=== PATIENT | male | born 1940 | race African-American/Black ===

== ENCOUNTER 2020-05-01 21:29 | Observation (INO) | payer MEDICARE ==
[2020-05-01 21:41] LABS: Glucose,Whole Blood 122 mg/dL (75-99)
--- NOTE | 2020-05-01 21:55 | ED ---
Syncope HPI - General Stated Complaint: Syncope Time Seen by Provider: 05/01/20 21:40 - History of Present Illness Initial Comments: Patient is 71-year-old male with past history of hypertension who presents to the emergency department with reported single episode. Patient was laying in bed. His called into the computer. He states he stood up, took 3 steps and ended up having a syncopal episode. He fell and hit his head. attempted to arouse the patient. She sat him up. Patient had his eyes open however he was unresponsive. The patient then fell again backwards and hit his head off the computer table where he sustained a laceration. She called EMS. Upon arrival the patient was alert and answering questions appropriately. No a ctive bleeding from the scalp laceration patient denies any headaches or visual changes. No neck pain. Patient denies any chest pain or shortness of breath prior to the incident. No history of similar in the past. Denies any numbness, tingling or weakness in his extremity. No speech difficult these. There is no seizure-like activity. Patient did not urinate or have a bowel movement. Patient did not bite his tongue. No other alleviating, precipitating or modifying factors - Related Data Home Medications Medication Instructions Recorded Confirmed LORazepam [Ativan] 1 mg PO BID PRN 11/29/14 05/01/20 Losartan Potassium [Cozaar] 100 mg PO HS 11/29/14 05/01/20 Latanoprost [Xalatan 0.005%] 1 drop LEFT EYE HS 05/01/20 05/01/20 Olopatadine HCl [Pataday] 1 drop LEFT EYE HS 05/01/20 05/01/20 Previous Rx's Medication Instructions Recorded Metoprolol Succinate (ER) [Toprol 25 mg PO DAILY #30 tab.er.24h 05/02/20 XL] Allergies Allergy/AdvReac Type Severity Reaction Status Date / Time No Known Allergies Allergy Verified 05/01/20 22:35 Review of Systems ROS Statement: Those systems with pertinent positive or pertinent negative responses have been documented in the HPI. ROS Other: All systems not noted in ROS Statement are negative. Past Medical History Past Medical History: Eye Disorder, GERD/Reflux, Hypertension Additional Past Medical History / Comment(s): diverticulitis, sarcoidosis,hiatal hernia, arthritis, glaucoma History of Any Multi-Drug Resistant Organisms: None Reported Past Surgical History: Joint Replacement Additional Past Surgical History / Comment(s): surgery on salivary gland, rt knee replacement Past Anesthesia/Blood Transfusion Reactions: No Reported Reaction Past Psychological History: Anxiety Past Alcohol Use History: Rare Past Drug Use History: None Reported - Past Family History Father Family Medical History: Pulmonary Embolus Mother Additional Family Medical History / Comment(s): Mother at age 51 from a lung disorder. Brother(s) Additional Family Medical History / Comment(s): Patient has 3 brothers in FOR myocardial infarction. Sister(s) Additional Family Medical History / Comment(s): Patient has 3 sisters and all have diabetes. Patient has 2 children with no major medical problems. General Exam General appearance: alert, in no apparent distress Head exam: Present: normocephalic, other (2.0 cm x 0.5 cm occipital laceration. No deep structure involvement. No retained foreign bodies. No underlying bony fracture. No active bleeding at this time) Eye exam: Present: normal appearance, PERRL, EOMI. Absent: scleral icterus, conjunctival injection, periorbital swelling ENT exam: Present: normal exam, mucous membranes moist Neck exam: Present: normal inspection. Absent: tenderness, meningismus, lymphadenopathy Respiratory exam: Present: normal lung sounds bilaterally. Absent: respiratory distress, wheezes, rales, rhonchi, stridor Cardiovascular Exam: Present: regular rate, normal rhythm, normal heart sounds. Absent: systolic murmur, diastolic murmur, rubs, gallop, clicks GI/Abdominal exam: Present: soft, normal bowel sounds. Absent: distended, tenderness, guarding, rebound, rigid Extremities exam: Present: normal inspection, full ROM, normal capillary refill. Absent: tenderness, pedal edema, joint swelling, calf tenderness Back exam: Present: normal inspection Neurological exam: Present: alert, oriented X3, CN II-XII intact Psychiatric exam: Present: normal affect, normal mood Skin exam: Present: warm, dry, intact, normal color. Absent: rash Course Vital Signs 05/01/20 05/01/20 05/01/20 21:41 22:24 22:45 Temperature 97.4 F L 97.9 F Pulse Rate 57 L 60 Pulse Rate [ 54 L Sitting] Pulse Rate [ 62 Standing] Pulse Rate [ 55 L Supine] Respiratory 14 16 Rate Blood Pressure 116/71 124/67 Blood Pressure 124/67 [Left Arm Sitting] Blood Pressure 117/65 [Left Arm Standing] Blood Pressure 122/69 [Left Arm Supine] O2 Sat by Pulse 98 96 Oximetry 05/02/20 05/02/20 00:08 00:44 Temperature 97.9 F 97.8 F Pulse Rate 63 Pulse Rate [ Sitting] Pulse Rate [ Standing] Pulse Rate [ 68 Supine] Respiratory 20 18 Rate Blood Pressure 124/67 Blood Pressure [Left Arm Sitting] Blood Pressure [Left Arm Standing] Blood Pressure 118/64 [Left Arm Supine] O2 Sat by Pulse 97 98 Oximetry EKG Findings - EKG Comments: EKG Findings:: EKG demonstrates inspiratory cartilage. 57. TN 168. QRS 82. QTC 439. No acute ST segment elevations. No evidence of high degree block. Procedures - Laceration Laceration #1 Consent Obtained: verbal consent Indication: laceration Site: scalp Size (cm): 2 Description: linear Depth: simple, single layer Pre-repair: wound explored, irrigated extensively, deep structures intact Number of Sutures: 2 (aime) Patient Tolerated Procedure: well, no complications Medical Decision Making - Medical Decision Making Upon arrival patient placed into room 8. A thorough history and physical exam was performed. Patient hooked up to continuous pulse ox and cardiac monitoring. 12-lead EKG performed. Peripheral IV was established. Laboratory studies were conducted. Orthostatics are performed and are negative. Patient sent for a chest x-ray. Also has a CT of his brain several spine performed. Laboratory studies are unremarkable. Chest x-ray demonstrates interstitial pulmonary fibrotic changes which are not different from previous chest CT. CT of the patient's cervical spine and head demonstrates cerebral atrophy and mild chronic small vessel ischemia. No acute intracranial malady. Spondylitic changes in the lower cervical spine. I did staple the patient's scalp laceration using 2 aime. Patient is reevaluated and feels improved at this time. I did recommend hospital admission for syncopal episode for patient did agree. Discussed case with Dr. Loving who accepted admission. I will order an echo and carotid Dopplers. Patient remained in stable condition awaiting a bed on the floor - Lab Data Result diagrams: 05/02/20 03:29 05/02/20 03:29 Lab Results 05/01/20 05/01/20 05/01/20 Range/Units 21:39 21:47 21:47 WBC 4.7 (3.8-10.6) k/uL RBC 3.98 L (4.30-5.90) m/uL Hgb 12.5 L (13.0-17.5) gm/dL Hct 36.9 L (39.0-53.0) % MCV 92.7 (80.0-100.0) fL MCH 31.3 (25.0-35.0) pg MCHC 33.8 (31.0-37.0) g/dL RDW 13.4 (11.5-15.5) % Plt Count 174 (150-450) k/uL Neutrophils % 69 % Lymphocytes % 17 % Monocytes % 9 % Eosinophils % 2 % Basophils % 1 % Neutrophils # 3.3 (1.3-7.7) k/uL Lymphocytes # 0.8 L (1.0-4.8) k/uL Monocytes # 0.4 (0-1.0) k/uL Eosinophils # 0.1 (0-0.7) k/uL Basophils # 0.0 (0-0.2) k/uL PT 10.6 (9.0-12.0) sec INR 1.0 (<1.2) APTT 22.0 (22.0-30.0) sec Sodium (137-145) mmol/L Potassium (3.5-5.1) mmol/L Chloride (98-107) mmol/L Carbon Dioxide (22-30) mmol/L Anion Gap mmol/L BUN (9-20) mg/dL Creatinine (0.66-1.25) mg/dL Est GFR (CKD-EPI)AfAm (>60 ml/min/1.73 sqM) Est GFR (CKD-EPI)NonAf (>60 ml/min/1.73 sqM) Glucose (74-99) mg/dL POC Glucose (mg/dL) 122 H (75-99) mg/dL POC Glu Valve Setter ID Kris, Saadia Calcium (8.4-10.2) mg/dL Total Bilirubin (0.2-1.3) mg/dL AST (17-59) U/L ALT (4-49) U/L Alkaline Phosphatase (38-126) U/L Troponin I (0.000-0.034) ng/mL Total Protein (6.3-8.2) g/dL Albumin (3.5-5.0) g/dL 05/01/20 05/01/20 Range/Units 21:47 21:47 WBC (3.8-10.6) k/uL RBC (4.30-5.90) m/uL Hgb (13.0-17.5) gm/dL Hct (39.0-53.0) % MCV (80.0-100.0) fL MCH (25.0-35.0) pg MCHC (31.0-37.0) g/dL RDW (11.5-15.5) % Plt Count (150-450) k/uL Neutrophils % % Lymphocytes % % Monocytes % % Eosinophils % % Basophils % % Neutrophils # (1.3-7.7) k/uL Lymphocytes # (1.0-4.8) k/uL Monocytes # (0-1.0) k/uL Eosinophils # (0-0.7) k/uL Basophils # (0-0.2) k/uL PT (9.0-12.0) sec INR (<1.2) APTT (22.0-30.0) sec Sodium 136 L (137-145) mmol/L Potassium 4.1 (3.5-5.1) mmol/L Chloride 108 H (98-107) mmol/L Carbon Dioxide 20 L (22-30) mmol/L Anion Gap 8 mmol/L BUN 23 H (9-20) mg/dL Creatinine 1.05 (0.66-1.25) mg/dL Est GFR (CKD-EPI)AfAm 79 (>60 ml/min/1.73 sqM) Est GFR (CKD-EPI)NonAf 68 (>60 ml/min/1.73 sqM) Glucose 118 H (74-99) mg/dL POC Glucose (mg/dL) (75-99) mg/dL POC Glu Valve Setter ID Calcium 8.7 (8.4-10.2) mg/dL Total Bilirubin 0.4 (0.2-1.3) mg/dL AST 22 (17-59) U/L ALT 11 (4-49) U/L Alkaline Phosphatase 76 (38-126) U/L Troponin I <0.012 (0.000-0.034) ng/mL Total Protein 6.1 L (6.3-8.2) g/dL Albumin 3.6 (3.5-5.0) g/dL Disposition Clinical Impression: Syncope, Blunt head trauma, Scalp laceration Disposition: ADMITTED IP TO THIS [facility] Condition: Stable Is patient prescribed a controlled substance at d/c from ED?: No Decision to Admit Reason: Admit from EC Decision Date: 05/01/20 Decision Time: 23:30
--- NOTE | 2020-05-01 22:15 | CT ---
EXAMINATION TYPE: CT brain trinh ozuna con DATE OF EXAM: 05/01/2020 COMPARISON: None HISTORY: fall, syncopal episode, posterior head injury Neck pain CT DLP: 1361.9 mGycm Automated exposure control for dose reduction was used. There is cerebral cortical atrophy. There is no mass effect nor midline shift. There is no sign of in tracranial hemorrhage. The calvarium is intact. There is normal aeration of the temporal bones. Cervical vertebra have normal alignment. There is disc space narrowing at C5-6 and C6-7 with spurring of the endplates. Posterior elements are intact. Facet joints are intact. The skull base is intact. There is some pleural and palmar scarring at the lung apices. There is mild hypodensity in the periventricular white matter. IMPRESSION: Cerebral atrophy and mild chronic small vessel ischemia. No acute intracranial abnormality. Spondylotic changes in the lower cervical spine. No fracture seen.
--- NOTE | 2020-05-01 22:16 | XR ---
EXAMINATION TYPE: XR chest 2V DATE OF EXAM: 05/01/2020 COMPARISON: None HISTORY: Syncope TECHNIQUE: FINDINGS: There is some coarse reticular interstitial infiltrate in the left mid and lower lung field . There is minimal interstitial infiltrate also right upper lobe. There is no heart failure. There ar e no hilar masses. Heart size is normal. Mediastinum is normal. There is no pleural effusion. Bony th orax is intact. IMPRESSION: Interstitial pulmonary fibrotic changes probably not significantly different than the [facility] CT scan of 12/01/2008. No heart failure.
[2020-05-01 22:17] LABS: Albumin 3.6 g/dL (3.5-5.0); Calcium 8.7 mg/dL (8.4-10.2); Potassium 4.1 mmol/L (3.5-5.1); Total Bilirubin 0.4 mg/dL (0.2-1.3); Total Protein 6.1 g/dL (6.3-8.2)
[2020-05-01 22:22] LABS: Prothrombin Time 10.6 sec (9.0-12.0)
[2020-05-01 22:43] LABS: Basophils % (A) 1 %; Eosinophils # (A) 0.1 k/uL (0-0.7); Eosinophils % (A) 2 %; HCT 36.9 % (39.0-53.0); HGB 12.5 gm/dL (13.0-17.5); Lymphocytes # (A) 0.8 k/uL (1.0-4.8); Lymphocytes % (A) 17 %; MCH 31.3 pg (25.0-35.0); MCHC 33.8 g/dL (31.0-37.0); MCV 92.7 fL (80.0-100.0); Mean Platelet Volume 7.7; Monocytes # (A) 0.4 k/uL (0-1.0); Monocytes % (A) 9 %; Neutrophils # (A) 3.3 k/uL (1.3-7.7); Neutrophils % (A) 69 %; Platelet Count 174 k/uL (150-450); RBC 3.98 m/uL (4.30-5.90); RDW 13.4 % (11.5-15.5); WBC 4.7 k/uL (3.8-10.6)
[2020-05-01] MEDS ORDERED: NALOXONE 0.4 MG/ML 1 ML VIAL IV PRN (23:30)
[2020-05-01] MEDS ORDERED: LORazepam 1 MG TAB PO PRN (23:37)
[2020-05-02] MEDS ORDERED: KETOTIFEN 0.025% OPHTH DROPS 5 ML BTL LEFT EYE SCH
[2020-05-02] MEDS ORDERED: LATANOPROST 0.005% OPHTH DROPS 2.5 ML BTL LEFT EYE SCH
--- NOTE | 2020-05-02 03:19 | US ---
EXAMINATION TYPE: US carotid duplex BILAT DATE OF EXAM: 05/02/2020 COMPARISON: CT CLINICAL HISTORY: syncope. Syncope. HTN. EXAM MEASUREMENTS: RIGHT: Peak Systolic Velocity (PSV) cm/sec ----- Right CCA: 80.6 ----- Right ICA: 83.9 ----- Right ECA: 174.0 ICA/CCA ratio: 1.0 RIGHT: End Diastole cm/sec ----- Right CCA: 8.2 ----- Right ICA: 20.1 ----- Right ECA: 0.0 LEFT: Peak Systolic Velocity (PSV) cm/sec ----- Left CCA: 113.6 ----- Left ICA: 123.2 ----- Left ECA: 101.3 ICA/CCA ratio: 1.1 LEFT: End Diastole cm/sec ----- Left CCA: 15.0 ----- Left ICA: 11.8 ----- Left ECA: 0.0 VERTEBRALS (direction of flow): Right Vertebral: Antegrade Left Vertebral: Antegrade Rhythm: Normal Increased velocities obtained right prox CCA, right mid CCA, right ECA, left prox CCA, and left mid C CA. Intimal thickening seen bilaterally. Minimal hyperechoic plaque seen bilateral carotid bifurcatio ns. Hypoechoic area with hyperechoic center seen right neck measurin.9 x 0.6 x 0.5 cm. IMPRESSION: There is antegrade flow in the vertebral arteries. The images and measurements suggest 50% stenosis i n the right internal carotid artery and 35% stenosis in the left internal carotid artery. There is 50 % stenosis right common carotid artery. Criteria for Assigning % of Stenosis / Diameter reduction (Estimation based on the indirect measurements of the internal carotid artery velocities (ICA PSV). 1. Normal (no stenosis)=ICA PSV < 125 cm/s: ratio < 2.0: ICA EDV<40 cm/s. 2. Less than 50% stenosis=ICA PSV < 125 cm/s: ratio < 2.0: ICA EDV<40 cm/s. 3. 50 to 69% stenosis=ICA PSV of 125 to 230 cm/s: ration 2.0 ? 4.0: ICA EDV 40-100 cm/s. 4. Greater than 70% stenosis to near occlusion= ICA PSV > 230 cm/s: ratio > 4.0: ICA EDV > 100 cm/s. 5. Near occlusion= ICA PSV velocities may be low or undetectable: variable ratio and ICA EDV. 6. Total occlusion=unable to detect flow.
[2020-05-02 04:26] LABS: Basophils % (A) 0 %; Eosinophils % (A) 1 %; HCT 38.5 % (39.0-53.0); HGB 12.8 gm/dL (13.0-17.5); Lymphocytes # (A) 0.5 k/uL (1.0-4.8); Lymphocytes % (A) 9 %; MCH 31.5 pg (25.0-35.0); MCHC 33.2 g/dL (31.0-37.0); MCV 94.6 fL (80.0-100.0); Mean Platelet Volume 7.7; Monocytes # (A) 0.5 k/uL (0-1.0); Monocytes % (A) 8 %; Neutrophils # (A) 4.9 k/uL (1.3-7.7); Neutrophils % (A) 81 %; Platelet Count 175 k/uL (150-450); RBC 4.07 m/uL (4.30-5.90); RDW 13.4 % (11.5-15.5)
[2020-05-02 04:28] LABS: Calcium 8.8 mg/dL (8.4-10.2); Potassium 4.5 mmol/L (3.5-5.1)
[2020-05-02 08:49] LABS: Cholesterol 144 mg/dL (<200); HDL Cholesterol 48 mg/dL (40-60); LDL Cholesterol,Calculated 88 mg/dL (0-99); Triglycerides 42 mg/dL (<150)
[2020-05-02 08:57] VITALS: BP 149/72; PULSE 60; RESP 18; TEMP 98
[2020-05-02] MEDS ORDERED: METOPROLOL SUCCINATE (ER) 100 MG TAB.ER.24H PO SCH (09:00)
[2020-05-02] MEDS ORDERED: METOPROLOL SUCCINATE (ER) 25 MG TAB.ER.24H PO SCH (09:30)
--- NOTE | 2020-05-02 10:00 | ECHOF ---
Referral Reason:syncope MEASUREMENTS -------- HEIGHT: 182.9 cm WEIGHT: 87.1 kg BP: 118/64 RVIDd: 3.5 cm (< 3.3) IVSd: 1.2 cm (0.6 - 1.1) LVIDd: 4.1 cm (3.9 - 5.3) LVPWd: 1.0 cm (0.6 - 1.1) IVSs: 1.3 cm LVIDs: 3.3 cm LVPWs: 1.4 cm LA Diam: 3.0 cm (2.7 - 3.8) LAESV Index (A-L): 26.85 ml/m Ao Diam: 3.3 cm (2.0 - 3.7) AV Cusp: 2.1 cm (1.5 - 2.6) MV EXCURSION: 13.536 mm (> 18.000) MV EF SLOPE: 69 mm/s (70 - 150) EPSS: 0.6 cm MV E Carlos: 0.75 m/s MV DecT: 220 ms MV A Carlos: 0.85 m/s MV E/A Ratio: 0.89 RAP: 5.00 mmHg RVSP: 41.43 mmHg FINDINGS -------- Sinus rhythm. This was a technically good study. The left ventricular size is normal. There is borderline concentric left ventricular hypertrophy. Overall left ventricular systolic function is normal with, an EF between 55 - 60 %. The right ventricle is normal in size. The left atrial size is normal. Normal LA size by volume 22+/-6 ml/m2. The right atrial size is normal. The aortic valve is trileaflet, and appears structurally normal. No aortic stenosis or regurgitation. Mild mitral regurgitation is present. Mild tricuspid regurgitation present. There is mild pulmonary hypertension. The right ventricular systolic pressure, as measured by Doppler, is 41.43mmHg. The pulmonic valve is normal. The aortic root size is normal. There is no pericardial effusion. CONCLUSIONS -------- 1. Sinus rhythm. 2. This was a technically good study. 3. The left ventricular size is normal. 4. There is borderline concentric left ventricular hypertrophy. 5. Overall left ventricular systolic function is normal with, an EF between 55 - 60 %. 6. The right ventricle is normal in size. 7. The left atrial size is normal. 8. Normal LA size by volume 22+/-6 ml/m2. 9. The right atrial size is normal. 10. Mild mitral regurgitation is present. 11. Mild tricuspid regurgitation present. 12. There is mild pulmonary hypertension. 13. The right ventricular systolic pressure, as measured by Doppler, is 41.43mmHg. HOME PARAPROFESSIONAL: Meagan Rdz RDCS
--- NOTE | 2020-05-02 10:40 | P.CRDCN ---
History of Present Illness History of present illness: HISTORY OF PRESENTING ILLNESS This is a pleasant 79-year-old male past medical history significant for hypertension, anxiety, sarcoidosis and glaucoma. He denies prior history of coronary artery disease and is not follow in the office with a report checker. We have been asked to see in consultation for syncope. He had been working outside in the yard all day. Came in around 1900 last night. He had an episode of what he describes as fireworks in his eyes. He took an ativan to calm himself down and laid down. His wanted to show him something on the computer so he got up and walked towards her. Before he made it to her he passed out. According to his it was for around 3 minutes. There was no convulsions or seizure like activity. He denies having chest pain, shortness of breath, nausea, vomiting, diaphoresis or palpitations. Vital signs negative for ortho static changes. DIAGNOSTICS EKG reveals sinus bradycardia heart rate of 57. Telemetry tracings reveal predominantly sinus mechanism with APCs. Chest xray pulmonary fibrotic changes with no heart failure noted. Laboratory reviewed, WBC 6, hemoglobin 12.8, platelets 175, d-dimer 0.48, sodium 135, potassium 4.5, creatinine 1.12, cardiac enzymes negative 3, LDL 88 and HDL 48. Current cardiac medications include Toprol 100 mg daily and losartan 100 mg at bedtime. REVIEW OF SYSTEMS At the time of my exam: CONSTITUTIONAL: Denies fever or chills. CARDIOVASCULAR: Denies chest pain, shortness of breath, orthopnea, PND or palpitations. RESPIRATORY: Denies cough. GASTROINTESTINAL: Denies abdominal pain, diarrhea, constipation, nausea or vomiting. MUSCULOSKELETAL: Denies myalgias. NEUROLOGIC: Denies numbness, tingling or weakness. ENDOCRINE: Denies fatigue, weight change, polydipsia or polyurina. GENITOURINARY: Denies burning, hematuria or urgency with micturation. HEMATOLOGIC: Denies history of anemia or bleeding. PHYSICAL EXAMINATION Blood pressure 149/72 heart rate 60 afebrile and maintaining oxygen saturation on room air. CONSTITUTIONAL: No apparent distress. HEENT: Head is normocephalic. Pupils are equal, round. Noted arcus senilis. Sclerae anicteric. Mucous membranes of the mouth are moist. No JVD. No carotid bruit. CHEST EXAMINATION: Lungs are clear to auscultation. No chest wall tenderness is noted on palpation or with deep breathing. HEART EXAMINATION: Regular rate and rhythm. S1, S2 heard. No murmurs, gallops or rub. ABDOMEN: Soft, nontender. Positive bowel sounds. EXTREMITIES: 2+ peripheral pulses, no lower extremity edema and no calf tenderness. NEUROLOGIC EXAMINATION: Patient is awake, alert and oriented x3. ASSESSMENT Syncope Hypertension History of sarcoidosis PLAN An acute coronary event has been ruled out. D-dimer unremarkable. Obtain 2-D echocardiogram and Doppler study to assess cardiac structure and function. Proceed with stress echocardiogram to assess for stress-induced cardiac ischemia. If stress test is normal recommend outpatient event monitoring. Follow-up in the office with Dr. Jennings. Thank you kindly for this consultation. Nurse Practitioner note has been reviewed, I agree with a documented findings and plan of care. Patient was seen and examined. Past Medical History Past Medical History: Eye Disorder, GERD/Reflux, Hypertension, Syncope Additional Past Medical History / Comment(s): diverticulitis, sarcoidosis,hiatal hernia, arthritis, glaucoma History of Any Multi-Drug Resistant Organisms: None Reported Past Surgical History: Joint Replacement Additional Past Surgical History / Comment(s): surgery on salivary gland, rt knee replacement Past Anesthesia/Blood Transfusion Reactions: No Reported Reaction Past Psychological History: Anxiety Smoking Status: Never smoker Past Alcohol Use History: Rare Past Drug Use History: None Reported - Past Family History Father Family Medical History: Pulmonary Embolus Medications and Allergies Home Medications Medication Instructions Recorded Confirmed Type LORazepam [Ativan] 1 mg PO BID PRN 11/29/14 05/01/20 History Losartan Potassium [Cozaar] 100 mg PO HS 11/29/14 05/01/20 History Metoprolol Succinate [Toprol XL] 100 mg PO DAILY 11/29/14 05/01/20 History Latanoprost [Xalatan 0.005%] 1 drop LEFT EYE HS 05/01/20 05/01/20 History Olopatadine HCl [Pataday] 1 drop LEFT EYE HS 05/01/20 05/01/20 History Allergies Allergy/AdvReac Type Severity Reaction Status Date / Time No Known Allergies Allergy Verified 05/01/20 22:35 Physical Exam Vitals: Vital Signs Temp Pulse Pulse Pulse Pulse Resp BP 05/02/20 01:45 97.8 F 68 16 05/02/20 00:44 97.8 F 68 18 05/02/20 00:08 97.9 F 63 20 124/67 05/01/20 22:45 97.9 F 60 16 124/67 05/01/20 22:24 54 L 62 55 L 05/01/20 21:41 97.4 F L 57 L 14 116/71 BP BP BP Pulse Ox 05/02/20 01:45 118/64 98 05/02/20 00:44 118/64 98 05/02/20 00:08 97 05/01/20 22:45 96 05/01/20 22:24 124/67 117/65 122/69 05/01/20 21:41 98 Intake and Output 05/01/20 05/02/20 05/02/20 22:59 06:59 14:59 Intake Total 450 Balance 450 Intake: Oral 450 Other: Voiding Method Toilet # Voids 0 Weight 87.09 kg 87.09 kg Results 05/02/20 03:29 05/02/20 03:29 Cardiac Enzymes 05/01/20 05/01/20 05/02/20 Range/Units 21:47 21:47 01:04 AST 22 (17-59) U/L Troponin I <0.012 <0.012 (0.000-0.034) ng/mL 05/02/20 Range/Units 03:29 AST (17-59) U/L Troponin I <0.012 (0.000-0.034) ng/mL Coagulation 05/01/20 Range/Units 21:47 PT 10.6 (9.0-12.0) sec APTT 22.0 (22.0-30.0) sec CBC 05/01/20 05/02/20 Range/Units 21:47 03:29 WBC 4.7 6.0 (3.8-10.6) k/uL RBC 3.98 L 4.07 L (4.30-5.90) m/uL Hgb 12.5 L 12.8 L (13.0-17.5) gm/dL Hct 36.9 L 38.5 L (39.0-53.0) % Plt Count 174 175 (150-450) k/uL Comprehensive Metabolic Panel 05/01/20 05/02/20 Range/Units 21:47 03:29 Sodium 136 L 135 L (137-145) mmol/L Potassium 4.1 4.5 (3.5-5.1) mmol/L Chloride 108 H 106 (98-107) mmol/L Carbon Dioxide 20 L 22 (22-30) mmol/L BUN 23 H 24 H (9-20) mg/dL Creatinine 1.05 1.12 (0.66-1.25) mg/dL Glucose 118 H 141 H (74-99) mg/dL Calcium 8.7 8.8 (8.4-10.2) mg/dL AST 22 (17-59) U/L ALT 11 (4-49) U/L Alkaline Phosphatase 76 (38-126) U/L Total Protein 6.1 L (6.3-8.2) g/dL Albumin 3.6 (3.5-5.0) g/dL Current Medications Generic Name Dose Route Start Last Admin Trade Name Freq PRN Reason Stop Dose Admin Ketotifen Fumarate 1 drops 05/02/20 00:00 05/02/20 00:52 Zaditor LEFT EYE Not Given HS MIQUEL Latanoprost 1 drops 05/02/20 00:00 05/02/20 00:52 Xalatan 0.005% LEFT EYE Not Given HS MIQUEL Lorazepam 1 mg 05/01/20 23:37 Ativan PO BID PRN Anxiety Losartan Potassium 100 mg 05/02/20 21:00 Cozaar PO HS MIQUEL Metoprolol Succinate 100 mg 05/02/20 09:00 Toprol Xl PO DAILY MIQUEL Naloxone HCl 0.2 mg 05/01/20 23:30 Narcan IV Q2M PRN Opioid Reversal Intake and Output 05/01/20 05/02/20 05/02/20 22:59 06:59 14:59 Intake Total 450 Balance 450 Intake: Oral 450 Other: Voiding Method Toilet # Voids 0 Weight 87.09 kg 87.09 kg 05/02/20 03:29 05/02/20 03:29
--- NOTE | 2020-05-02 13:42 | P.HPIM ---
History of Present Illness H&P Date: 05/02/20 HISTORY AND PHYSICAL AND DISCHARGE SUMMARY: History of Present Illness This is a 79-year-old -[place] male patient of Dr. Loving with past medical history of hypertension, gastroesophageal reflux disease, glaucoma, benign prostatic hypertrophy, borderline diabetes, gastroesophageal reflux disease status post Joce fundoplication and erectile dysfunction. Patient states he was working in the yard all day yesterday and then went into the house and took a shower. He took his medication and then his wanted him to see something on the computer. The patient does admit that he took a Viagra and then approximately one hour later felt dizzy and had a loss of consciousness maybe for 2-3 minutes. His did not report any seizure type activity. Patient relates that EMS found his blood pressure was on the low side. Regarding his medications, patient was recently decreased to metoprolol 50 due to bradycardia and patient feeling tired. This change was adjusted about 3 weeks ago. Patient came into [facility] emergency [facility] for evaluation. EKG reveals sinus bradycardia heart rate of 57. Chest xray pulmonary fibrotic changes with no heart failure noted. CAT scan of the brain and cervical spine revealed cerebral atrophy and mild chronic small vessel ischemia. No acute intracranial abnormality. Spondylotic changes in the lower cervical spine. No fracture seen. WBC 6, hemoglobin 12.8, platelets 175, d-dimer 0.48, sodium 135, potassium 4.5, creatinine 1.12, cardiac enzymes negative 3, LDL 88 and HDL 48. Patient was placed on the cardiac observation unit and consult with cardiology obtained. Echocardiogram revealed EF of 55-60%, mild mitral regurgitation, mild tricuspid regurgitation, mild pulmonary hypertension. Carotid ultrasound revealed 50% stenosis in the right internal carotid artery and 35% stenosis in the left internal carotid artery. Stress test was negative and patient was cleared for discharge home today. Event monitor has been arranged by cardiology. Patient will be discharged home today in stable condition. Toprol-XL decreased from 50 mg daily to 25 mg daily. Review of Systems Constitutional: No fever, no chills, no night sweats. No weight change. No weakness, fatigue or lethargy. No daytime sleepiness. EENT: No headache. No blurred vision or double vision, no loss of vision. No loss of Hearing, no ringing in the ears, no dizziness. No nasal drainage or congestion. No epistaxis. No sore throat. Lungs: No shortness of breath, cough, no sputum production. No wheezing. Cardiovascular: No chest pain, no lower extremity edema. No palpitations. No paroxysmal nocturnal dyspnea. No orthopnea. No lightheadedness or dizziness. Reports syncopal episodes. Abdominal: No abdominal pain. No nausea, vomiting. No diarrhea. No constipation. No bloody or tarry stools.. No loss of appetite. Genitourinary: No dysuria, increased frequency, urgency. No urinary retention. Musculoskeletal: No myalgias. No muscle weakness, no gait dysfunction, no frequent falls. No back pain. No neck pain. Integumentary: No wounds, no lesions. No rash or pruritus. No unusual bruising. No change in hair or nails. Neurologic: No aphasia. No facial droop. No change in mentation. No head injury. No headache. No paralysis. No paresthesia. Psychiatric: No depression. No anxiety. No mood swings. Endocrine: No abnormal blood sugars. No weight change. No excessive sweating or thirst. No cold intolerance. Physical Examination Gen: This is a 79-year-old -[place] male. He is resting in bed appears to be comfortable and in no acute distress. HEENT: Head is atraumatic, normocephalic. Pupils equal, round. Sclerae is anicteric. NECK: Supple. No JVD. No lymphadenopathy. No thyromegaly. LUNGS: Clear to auscultation. No wheezes or rhonchi. No intercostal retractions. HEART: Regular rate and rhythm. No murmur. ABDOMEN: Soft. Bowel sounds are present. No masses. No tenderness. EXTREMITIES: No pedal edema. No calf tenderness. Dorsalis pedis palpable bilaterally. NEUROLOGICAL: Patient is awake, alert and oriented x3. Cranial nerves 2 through 12 are grossly intact. Assessment and Plan 1. Syncopal episode most likely due to combination of hypotension from Viagra and dehydration. 2. Hypertension. 3. History of sarcoidosis, stable. 4. Benign prostatic hypertrophy. 5. History of gastroesophageal reflux disease status post Joce fundoplication. 6. History of glaucoma. 7. Borderline diabetes. 8. COVID-19 infection not present. Patient placed on the cardiac observation unit. Discharge plan: Home Impression and plan of care have been directed as dictated by the signing physician. Carmita Uriostegui nurse practitioner acting as scribe for signing physic rocael. Past Medical History Past Medical History: Eye Disorder, GERD/Reflux, Hypertension, Syncope Additional Past Medical History / Comment(s): diverticulitis, sarcoidosis, hiatal hernia, arthritis, glaucoma History of Any Multi-Drug Resistant Organisms: None Reported Past Surgical History: Joint Replacement Additional Past Surgical History / Comment(s): surgery on salivary gland, rt knee replacement Past Anesthesia/Blood Transfusion Reactions: No Reported Reaction Past Psychological History: Anxiety Smoking Status: Never smoker Past Alcohol Use History: Rare Additional Past Alcohol Use History / Comment(s): Patient is a lifelong nonsmoker, occasional alcohol use, no marijuana or illicit drug use. Patient is retired from [employer] work degree and [employer]. He has been retired for 10-15 years. He lives at home with his . Past Drug Use History: None Reported - Past Family History Father Family Medical History: Pulmonary Embolus Additional Family Medical History / Comment(s): Father at age 86 from a pulmonary embolism with history of prostate cancer. Mother Additional Family Medical History / Comment(s): Mother at age 51 from a lung disorder. Brother(s) Additional Family Medical History / Comment(s): Patient has 3 brothers in FOR myocardial infarction. Sister(s) Additional Family Medical History / Comment(s): Patient has 3 sisters and all have diabetes. Patient has 2 children with no major medical problems. Medications and Allergies Home Medications Medication Instructions Recorded Confirmed Type LORazepam [Ativan] 1 mg PO BID PRN 11/29/14 05/01/20 History Losartan Potassium [Cozaar] 100 mg PO HS 11/29/14 05/01/20 History Latanoprost [Xalatan 0.005%] 1 drop LEFT EYE HS 05/01/20 05/01/20 History Olopatadine HCl [Pataday] 1 drop LEFT EYE HS 05/01/20 05/01/20 History Metoprolol Succinate (ER) [Toprol 25 mg PO DAILY #30 tab.er.24h 05/02/20 Rx XL] Allergies Allergy/AdvReac Type Severity Reaction Status Date / Time No Known Allergies Allergy Verified 05/01/20 22:35 Physical Exam Vitals: Vital Signs Temp Pulse Pulse Pulse Pulse Resp BP 05/02/20 09:00 60 18 05/02/20 08:54 98 F 60 18 05/02/20 01:45 97.8 F 68 16 05/02/20 00:44 97.8 F 68 18 05/02/20 00:08 97.9 F 63 20 124/67 05/01/20 22:45 97.9 F 60 16 124/67 05/01/20 22:24 54 L 62 55 L 05/01/20 21:41 97.4 F L 57 L 14 116/71 BP BP BP BP Pulse Ox 05/02/20 09:00 05/02/20 08:54 149/72 98 05/02/20 01:45 118/64 98 05/02/20 00:44 118/64 98 05/02/20 00:08 97 05/01/20 22:45 96 05/01/20 22:24 124/67 117/65 122/69 05/01/20 21:41 98 Intake and Output 05/01/20 05/02/20 05/02/20 22:59 06:59 14:59 Intake Total 450 Balance 450 Intake: Oral 450 Other: Voiding Method Toilet Toilet # Voids 0 Weight 87.09 kg 87.09 kg Results CBC & Chem 7: 05/02/20 03:29 05/02/20 03:29 Labs: Abnormal Lab Results - Last 24 Hours (Table) 05/01/20 05/01/20 05/01/20 Range/Units 21:39 21:47 21:47 RBC 3.98 L (4.30-5.90) m/uL Hgb 12.5 L (13.0-17.5) gm/dL Hct 36.9 L (39.0-53.0) % Lymphocytes # 0.8 L (1.0-4.8) k/uL Sodium 136 L (137-145) mmol/L Chloride 108 H (98-107) mmol/L Carbon Dioxide 20 L (22-30) mmol/L BUN 23 H (9-20) mg/dL Glucose 118 H (74-99) mg/dL POC Glucose (mg/dL) 122 H (75-99) mg/dL Total Protein 6.1 L (6.3-8.2) g/dL 05/02/20 05/02/20 Range/Units 03:29 03:29 RBC 4.07 L (4.30-5.90) m/uL Hgb 12.8 L (13.0-17.5) gm/dL Hct 38.5 L (39.0-53.0) % Lymphocytes # 0.5 L (1.0-4.8) k/uL Sodium 135 L (137-145) mmol/L Chloride (98-107) mmol/L Carbon Dioxide (22-30) mmol/L BUN 24 H (9-20) mg/dL Glucose 141 H (74-99) mg/dL POC Glucose (mg/dL) (75-99) mg/dL Total Protein (6.3-8.2) g/dL
[2020-05-02] MEDS ORDERED: LOSARTAN 50 MG TAB PO SCH (21:00)
[2020-05-03] MEDS ORDERED: METOPROLOL SUCCINATE (ER) 50 MG TAB.ER.24H PO SCH (09:00)
--- NOTE | 2020-05-04 11:49 | P.STRESS ---
- Stress Test Note Stress Test Results/Findings: Exam Performed: stress echo exercise with con Exam Date: 05/02/20 Reason for Exam: Syncope Height: 6 ft Weight: 87.09 kg Protocol: Jurgen Stage: 2 Duration of Exercise: 5:07 Resting Heart Rate: 59 Resting Blood Pressure: 132/63 Maximum Achieved Heart Rate: 124 Maximum Achieved Blood Pressure: 215/73 85% PMHR: 121 100% PMHR: 142 METS: 6.8 Technologist Comment: Stress Test Results/Findings: This is a 79-year-old gentleman with history of hypertension, family history of ischemic heart disease who was admitted to the hospital with episode of syncope. Stress data: Patient EKG showed sinus rhythm with normal TX and QRS duration. Blood pressure at rest is 130/63 with pulse rate of 59. Patient walked on the Jurgen protocol for about 5 minutes achieving a maximal heart rate of 124 with blood pressure of 215/73. EKGs taken during and after exercise did not demonstrate any significant changes size ischemia. Frequent PVCs were noted, which are mostly single. Echo data: Baseline echo images show normal wall motion and thickening. Exercise echo images showed augmentation of wall motion and thickening in all the segments. Final impression: #1. Negative stress test #2. Negative stress echo
--- NOTE | 2020-05-04 16:11 | ECHOS ---
Stress Test Results/Findings: Exam Performed: stress echo exercise with con Exam Date: 05/02/20 Reason for Exam: Syncope Height: 6 ft Weight: 87.09 kg Protocol: Jurgen Stage: 2 Duration of Exercise: 5:07 Resting Heart Rate: 59 Resting Blood Pressure: 132/63 Maximum Achieved Heart Rate: 124 Maximum Achieved Blood Pressure: 215/73 85% PMHR: 121 100% PMHR: 142 METS: 6.8 Technologist Comment: Stress Test Results/Findings: This is a 79-year-old gentleman with history of hypertension, family history of ischemic heart disease who was admitted to the hospital with episode of syncope. Stress data: Patient EKG showed sinus rhythm with normal RI and QRS duration. Blood pressure at rest is 130/63 with pulse rate of 59. Patient walked on the Jurgen protocol for about 5 minutes achieving a maximal heart rate of 124 with blood pressure of 215/73. EKGs taken during and after exercise did not demonstrate any significant changes size ischemia. Frequent PVCs were noted, which are mostly single. Echo data: Baseline echo images show normal wall motion and thickening. Exercise echo images showed augmentation of wall motion and thickening in all the segments. Final impression: #1. Negative stress test #2. Negative stress echo MTDD
== END 2020-05-02 14:40 | disposition home or self-care (01) ==
LOC: EC 21:29 → 3NCARDOBS 23:30
PROVIDERS: ADMIT Internal Medicine Geriatric Medicine; ATTEND Internal Medicine Geriatric Medicine
DX: R55 Syncope and collapse (principal); I10 Essential (primary) hypertension; W19.XXXA Unspecified fall, initial encounter; S01.01XA Laceration without foreign body of scalp, initial encounter; K21.9 Gastro-esophageal reflux disease without esophagitis; H40.9 Unspecified glaucoma; D86.9 Sarcoidosis, unspecified; M19.90 Unspecified osteoarthritis, unspecified site; F41.9 Anxiety disorder, unspecified; N40.0 Benign prostatic hyperplasia without lower urinary tract symptoms; N52.9 Male erectile dysfunction, unspecified; R73.03 Prediabetes; I65.23 Occlusion and stenosis of bilateral carotid arteries; Z87.09 Personal history of other diseases of the respiratory system; Z96.651 Presence of right artificial knee joint; Z79.899 Other long term (current) drug therapy; Z82.49 Family history of ischemic heart disease and other diseases of the circulatory system; Z83.3 Family history of diabetes mellitus; Z80.42 Family history of malignant neoplasm of prostate; Z83.6 Family history of other diseases of the respiratory system; Z11.59 Encounter for screening for other viral diseases
CPT/HCPCS: 12001; 99285; 36415; 93005; 93306; 93270; 93351; 85379; 80061; 80053; 80048; 84484 ×2; 85025 ×2; 85610; 85730; 71046; 93880; 72125; 70450; G0378 ×2; U0003